=== PATIENT | male | born 1990 | race Caucasian/White ===

== ENCOUNTER 2017-12-19 17:55 | Inpatient (IN) | payer OTHER, MEDICAID ==
[2017-12-19] MEDS ORDERED: ONDANSETRON 4 MG/2 ML VIAL ONE (18:02)
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
--- NOTE | 2017-12-19 18:23 | CPEKG ---
Heart Rate: 43 RR Interval: 1395 P-R Interval: 164 QRSD Interval: 90 QT Interval: 508 QTC Interval: 430 P Rhodhiss: 71 QRS Rhodhiss: 86 T Wave Rhodhiss: 77 EKG Severity - ABNORMAL ECG - EKG Impression: BRADYCARDIA WITH IRREGULAR RATE 37-47 EKG Impression: ABNORMAL T, CONSIDER ISCHEMIA, ANT-LAT LEADS EKG Impression: ST ELEVATION SUGGESTS PERICARDITIS Electronically Signed By: Rajiv Herrera 19-Dec-2017 19:16:37
[2017-12-19 18:29] LABS: INR 1.08 (0.83-1.16); PROTIME(PATIENT) 14.2 SEC (12.0-15.0)
[2017-12-19] MEDS ORDERED: NS 1,000 ML IV ONE (18:33)
[2017-12-19] MEDS ORDERED: ONDANSETRON 4 MG/2 ML VIAL IVP ONE (18:33)
[2017-12-19] MEDS ORDERED: ceFAZolin 2 GM/DEXTROSE 100 ML IV ONE (18:40)
[2017-12-19] MEDS ORDERED: fentaNYL 100 MCG/2 ML INJ IVP ONE (18:43)
[2017-12-19] MEDS ORDERED: IOPAMIDOL (ISOVUE-300) 100 ML BTL ONE (18:45)
[2017-12-19] MEDS ORDERED: IOPAMIDOL (ISOVUE 370) 100 ML BTL IV ONE (18:45)
[2017-12-19 19:00] LABS: PLATELET COUNT 259 10^3/uL (150-400)
[2017-12-19] MEDS ORDERED: TDAP ADULT 0.5 ML INJ (BOOSTRIX) IM ONE (19:12)
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
[2017-12-19] MEDS ORDERED: BACITRACIN ZINC 14.2 GM OINTTUBE TP ONE (20:25)
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
[2017-12-19] MEDS: ONDANSETRON 4 MG/2 ML VIAL IVP PRN (21:27)
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
[2017-12-19] MEDS: HYDROCODONE/APAP 5/325 TAB PO PRN (22:49)
[2017-12-19] MEDS: LR 1,000 ML IV SCH (22:49)
[2017-12-20] MEDS: ASPIRIN EC 81 MG TAB PO SCH ×2 (00:09→08:14)
[2017-12-20] MEDS ORDERED: HYDROmorphONE/DILAUDID 1 MG/ML INJ IVP PRN (02:07)
[2017-12-20] MEDS: ceFAZolin 2 GM/DEXTROSE 100 ML IV SCH ×3 (02:26→18:26)
[2017-12-20] MEDS: ONDANSETRON 4 MG/2 ML VIAL IVP PRN ×4 (02:27→21:46)
[2017-12-20] MEDS: HYDROCODONE/APAP 5/325 TAB PO PRN (06:45)
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
[2017-12-20] MEDS ORDERED: HYDROGEN PEROXIDE 473 ML BOTTLE TP ONE (09:45)
[2017-12-20] MEDS: LR 1,000 ML IV SCH ×2 (10:13→18:26)
[2017-12-20] MEDS: traMADol 50 MG TAB PO PRN (10:15)
[2017-12-20] MEDS: IBUPROFEN 600 MG TAB PO SCH ×3 (11:48→21:42)
[2017-12-20] MEDS ORDERED: SCOPOLAMINE HYDROBROMIDE 1 MG/3 DAYS PATCH TD ONE (22:45)
[2017-12-21] MEDS: ceFAZolin 2 GM/DEXTROSE 100 ML IV SCH ×3 (02:29→19:56)
[2017-12-21] MEDS: LR 1,000 ML IV SCH ×4 (05:36→19:58)
[2017-12-21] MEDS: ONDANSETRON 4 MG/2 ML VIAL IVP PRN ×2 (05:37→11:58)
[2017-12-21] MEDS: IBUPROFEN 600 MG TAB PO SCH ×4 (05:37→21:25)
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
[2017-12-21] MEDS: ASPIRIN EC 81 MG TAB PO SCH (08:48)
[2017-12-21] MEDS: ACETAMINOPHEN 500 MG TAB PO PRN ×2 (08:51→16:12)
[2017-12-21] MEDS: traMADol 50 MG TAB PO PRN ×2 (08:51→16:16)
[2017-12-21] MEDS: BACITRACIN OINTMENT 1 PACKET TP SCH ×3 (09:00→21:30)
[2017-12-21] MEDS ORDERED: KETOROLAC 30 MG/1 ML SDV IVP ONE (13:00)
[2017-12-21] MEDS ORDERED: KETOROLAC 15 MG/1 ML SDV IVP PRN (13:00)
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
[2017-12-21] MEDS: PROMETHAZINE HCL 25 MG/ML INJ IVP PRN (13:35)
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
[2017-12-22] MEDS: ceFAZolin 2 GM/DEXTROSE 100 ML IV SCH ×2 (02:46→10:44)
[2017-12-22] MEDS: traMADol 50 MG TAB PO PRN ×3 (02:48→20:33)
[2017-12-22] MEDS: IBUPROFEN 600 MG TAB PO SCH ×4 (05:48→20:30)
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
[2017-12-22] MEDS: ASPIRIN EC 81 MG TAB PO SCH (09:43)
[2017-12-22] MEDS: BACITRACIN OINTMENT 1 PACKET TP SCH (09:44)
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
[2017-12-22] MEDS: PROMETHAZINE HCL 25 MG/ML INJ IVP PRN ×2 (13:09→20:33)
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
[2017-12-22] MEDS: BACITRACIN ZINC 14.2 GM OINTTUBE TP SCH ×2 (16:10→20:45)
[2017-12-22] MEDS: LR 1,000 ML IV SCH (18:33)
--- NOTE | 2017-12-22 19:02 | SOAPPROG ---
Downtime Inpatient MD Late Entry SOAP Note: Repeat CT head shows underlying cerebral edema/contusion/persistent pneumocephalus ENT consult requested for evaluation of hearing loss
[2017-12-23] MEDS: IBUPROFEN 600 MG TAB PO SCH ×4 (06:24→21:44)
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
[2017-12-23] MEDS: ASPIRIN EC 81 MG TAB PO SCH (10:17)
[2017-12-23] MEDS: BACITRACIN ZINC 14.2 GM OINTTUBE TP SCH ×2 (10:17→21:44)
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
[2017-12-23] MEDS ORDERED: PATCH REMOVAL 1 EA PATCH TD ONE (22:33)
[2017-12-24] MEDS: traMADol 50 MG TAB PO PRN ×2 (04:57→21:17)
[2017-12-24] MEDS: IBUPROFEN 600 MG TAB PO SCH ×4 (04:58→21:17)
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
[2017-12-24] MEDS: BACITRACIN ZINC 14.2 GM OINTTUBE TP SCH ×2 (10:24→21:17)
[2017-12-24] MEDS: ASPIRIN EC 81 MG TAB PO SCH (10:24)
[2017-12-24] MEDS: ACETAMINOPHEN 500 MG TAB PO PRN (10:26)
[2017-12-24 15:43] VITALS: BP 92/72
--- NOTE | 2017-12-24 20:18 | TRAUMAPN ---
Trauma Progress Note Assessment/Plan: PAD#5 12/24/17 Assessment: Ophthalmologic consult ( Dr. Jose Gonzalez) report has yet to be found. Per the patient, Ophtho says that his diplopia is due to his fractures. He has a "woody" left facial droop consistent with a facial nerve dysfunction ENT has addressed the Ear canal and left sided hearing deficit. no complaints Plan: Contact Dr. Gonzalez to see if there is anything that might preclude discharge Subjective: " I heal fast and would like to go home" Objective: Vital Signs Temp Pulse Resp BP Pulse Ox 36.8 C 80 14 92/72 L 99 12/24/17 15:43 12/24/17 15:43 12/24/17 15:43 12/24/17 15:43 12/24/17 15:43 12/23/17 12/24/17 12/25/17 05:59 05:59 05:59 Intake Total 2500 1450 Output Total 400 Balance 2100 1450 PT 14.2 SEC (12.0-15.0) 12/19/17 16:00 INR 1.08 (0.83-1.16) 12/19/17 16:00 - C-Spine Clearance Cervical Spine Cleared: Yes Provider who Cleared Cervical Spine: Dr. Eddy 12/20/2017 Time Cervical Spine was Cleared: 07:45 Physical Exam - Physical Exam General Appearance: WD/WN, alert, no apparent distress EENT: other (Left ear is dressed. Skull asymetrical due to depressed fracture. Cannot look to the left with his left eye. Dental fractures noted. Has left facial droop.) Neck: non-tender, full range of motion, supple Respiratory: chest non-tender, lungs clear, normal breath sounds Cardiac/Chest: normal peripheral pulses, regular rate, rhythm, edema Abdomen: normal bowel sounds, non-tender, soft Male Genitalia: deferred Rectal: deferred Back: Normal inspection Skin: normal color, warm/dry, other (multiple abrasions in various stages of healing noted) Extremities: normal range of motion, non-tender, normal inspection Neuro/Psych: no motor/sensory deficits, alert, normal mood/affect, oriented x 3 Time Spent w/Patient (minutes): 25
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
== END 2017-12-24 21:20 | disposition home or self-care (01) | DRG 155 ==
LOC: INTOOBSV 18:15 → F2N 22:12 → F3N 12-20 15:05 → OBSVTOIN 12-21 13:14
PROVIDERS: ADMIT Surgery; ATTEND Surgery
PROC: 08QPXZZ Repair Left Upper Eyelid, External Approach (ICD-10-PCS; principal; 2017-12-19)
PROC: 09Q1XZZ Repair Left External Ear, External Approach (ICD-10-PCS; principal; 2017-12-19)
PROC: 0HQ1XZZ Repair Face Skin, External Approach (ICD-10-PCS; principal; 2017-12-19)
DX: S08.122A Partial traumatic amputation of left ear, initial encounter (principal); S01.81XA Laceration without foreign body of other part of head, initial encounter; S01.112A Laceration without foreign body of left eyelid and periocular area, initial encounter; S02.19XA Other fracture of base of skull, initial encounter for closed fracture; S02.40FA Zygomatic fracture, left side, initial encounter for closed fracture; S04.52XA Injury of facial nerve, left side, initial encounter; H53.2 Diplopia; H90.12 Conductive hearing loss, unilateral, left ear, with unrestricted hearing on the contralateral side; Y92.411 Interstate highway as the place of occurrence of the external cause; F17.210 Nicotine dependence, cigarettes, uncomplicated
CPT/HCPCS: 82435-PO; 82565-PO; 82947-PO; 84132-PO; 84295-PO; 84520-PO; 85014-PO; 92523-GN; 96365; 97161-GP; G0378; G0480; J0690; J1170; J1885; J2270; J2405; J2550; L0120; Q9967

== ENCOUNTER 2018-03-28 10:50 | Emergency (ER) | payer MEDICAID, OTHER ==
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
[2018-03-28 14:15] VITALS: BP 127/80
== END 2018-03-28 14:16 | disposition home or self-care (01) ==
DX: S09.90XA Unspecified injury of head, initial encounter (principal); R51 Headache; W01.198A Fall on same level from slipping, tripping and stumbling with subsequent striking against other object, initial encounter; Y93.H9 Activity, other involving exterior property and land maintenance, building and construction; Z87.828 Personal history of other (healed) physical injury and trauma